=== PATIENT | male | born 1975 | race Caucasian/White ===

== ENCOUNTER 2016-12-02 00:07 | Inpatient (IN) | payer MEDICAID ==
[~2016-12-02] VITALS: Ht 172.7 cm; Wt 88.0 kg
[2016-12-02] VITALS (18 sets, daily range): BP systolic 111–193; BP diastolic 68–98; PULSE 55–102; RESP 17–23; Ht 172.7 cm; Wt 88.0 kg
--- NOTE | 2016-12-02 01:27 | ERA ---
ER Documentation Chief Complaint Date/Time DATE: 12/02/16 TIME: 01:27 Chief Complaint AP HPI The patient is a 41-year-old male, presenting with acute moderate epigastric abdominal pain that began about 10 PM, he had similar symptoms previously but not with this intensity. The pain is 10/10, no aggravating or relieving factor. He denies fever, chills, neck pain, chest pain, dyspnea, vomiting, dysuria, diarrhea. He smokes, denies drinking or using illicit drug Past medical/surgical history: None ROS All systems reviewed and are negative except as per history of present illness. Medications Home Meds No Active Prescriptions or Reported Meds Allergies Allergies: Coded Allergies: No Known Allergy (Unverified , 12/02/16) PMhx/Soc Medical and Surgical Hx: pt denies Medical Hx, pt denies Surgical Hx Hx Alcohol Use: No Hx Substance Use: No Hx Tobacco Use: Yes Smoking Status: Current some day smoker Physical Exam Vitals Vital Signs Date Time Temp Pulse Resp B/P Pulse Ox O2 Delivery O2 Flow Rate FiO2 12/02/16 03:55 61 16 139/93 97 Room Air 12/02/16 02:58 61 16 166/98 100 Room Air 12/02/16 00:29 97.3 55 20 167/93 100 Physical Exam Const: No acute distress. Head: Atraumatic. Eyes: Normal Conjunctiva. ENT: Normal External Ears, Nose and Mouth. Neck: Full range of motion. No meningismus. Resp: Clear to auscultation bilaterally. Cardio: Regular rate and rhythm. Abd: Soft, non distended, normal bowel sounds, Moderate epigastric and mild right upper quadrant tenderness. No rigidity, rebound, CVA tenderness Skin: No petechiae or rashes. Back: No midline or flank tenderness. Ext: No cyanosis, or edema. Neur: Awake and alert. No focal deficit Psych: Normal Mood and Affect. Result Diagram: 12/02/16 0140 12/02/16 0140 Results 24 hrs Laboratory Tests Test 12/02/16 01:40 12/02/16 01:50 White Blood Count 10.610^3/ul Red Blood Count 4.7010^6/ul Hemoglobin 14.6g/dl Hematocrit 41.4% Mean Corpuscular Volume 88.1fl Mean Corpuscular Hemoglobin 31.1pg Mean Corpuscular Hemoglobin Concent 35.3g/dl Red Cell Distribution Width 12.8% Platelet Count 03487^3/UL Mean Platelet Volume 11.8fl Neutrophils % 65.7% Lymphocytes % 22.7% Monocytes % 6.9% Eosinophils % 3.5% Basophils % 0.7% Nucleated Red Blood Cells % 0.0/100WBC Neutrophils # (Manual) 7.010^3/ul Lymphocytes # 2.410^3/ul Monocytes # 0.710^3/ul Eosinophils # 0.410^3/ul Basophils # 0.110^3/ul Nucleated Red Blood Cells # 0.010^3/ul Sodium Level 140mmol/L Potassium Level 3.7mmol/L Chloride Level 104mmol/L Carbon Dioxide Level 27mmol/L Anion Gap 13 Blood Urea Nitrogen 11mg/dl Creatinine 0.89mg/dl Glucose Level 176mg/dl Calcium Level 9.0mg/dl Total Bilirubin 0.5mg/dl Direct Bilirubin 0.00mg/dl Indirect Bilirubin 0.5mg/dl Aspartate Amino Transf (AST/SGOT) 28IU/L Alanine Aminotransferase (ALT/SGPT) 41IU/L Alkaline Phosphatase 125IU/L Total Protein 7.3g/dl Albumin 4.1g/dl Globulin 3.20g/dl Albumin/Globulin Ratio 1.28 Lipase 137U/L Bedside Urine pH (LAB) 6.0 Bedside Urine Protein (LAB) Negative Bedside Urine Glucose (UA) Negative Bedside Urine Ketones (LAB) Negative Bedside Urine Blood Negative Bedside Urine Nitrite (LAB) Negative Bedside Urine Leukocyte Esterase (L Negative Current Medications Medications (Trade) Dose Ordered Sig/Kinjal Route PRN Reason Start Time Stop Time Status Last Admin Dose Admin Morphine Sulfate (morphine) 4 mg ONCE STAT IV 12/02/16 02:05 12/02/16 02:08 DC 12/02/16 02:10 Ondansetron HCl (Zofran Inj) 4 mg ONCE STAT IV 12/02/16 02:05 12/02/16 02:08 DC 12/02/16 02:10 Hydromorphone HCl 1 mg 1 mg ONCE STAT IV 12/02/16 02:50 12/02/16 02:51 DC 12/02/16 02:56 Piperacillin Sod/ Tazobactam Sod 100 ml @ 200 mls/hr ONCE ONCE IVPB 12/02/16 03:30 12/02/16 03:59 DC 12/02/16 03:11 Sodium Chloride (NS) 1,000 ml @ 1,000 mls/hr Q1H ONCE IV 12/02/16 03:30 12/02/16 04:29 DC 12/02/16 03:11 Hydralazine HCl 10 mg 10 mg Q6H PRN IV ELEVATED BLOOD PRESSURE 12/02/16 03:30 Sodium Chloride (NS) 1,000 ml @ 75 mls/hr [id number] IV 12/02/16 03:21 12/02/16 03:34 IV Flush (NS 3 ml) 3 ml PER PROTOCOL IV 12/02/16 03:30 Ondansetron HCl (Zofran Inj) 4 mg Q6H PRN IV NAUSEA AND/OR VOMITING 12/02/16 03:30 Acetaminophen (Tylenol Tab) 650 mg Q6H PRN PO PAIN LEVEL 1-3 OR FEVER 12/02/16 03:30 Hydromorphone HCl (Dilaudid) 0.5 mg Q4H PRN IV SEVERE PAIN LEVEL 7-10 12/02/16 03:30 Docusate Sodium (Colace) 100 mg Q12H PRN PO CONSTIPATION 12/02/16 03:30 Bisacodyl (Dulcolax) 5 mg DAILY PRN PO CONSTIPATION 12/02/16 03:30 Famotidine 20 mg 20 mg Q12 IV 12/02/16 03:31 12/02/16 03:33 Piperacillin Sod/ Tazobactam Sod (Zosyn 3.375gm/ 100 ml (Pmx)) 100 ml @ 200 mls/hr Q6 IVPB 12/02/16 08:00 Procedures/[place] [address] Radiology Main Line: [phone] DIAGNOSTIC IMAGING REPORT Patient: CARLOS BOTELLO : 1975 Age: 41 Sex: M MR #: [id number] DOS: 12/02/16 0151 Ordering MD: PRUDENCIO DAY MD Location: E/R Room/Bed: PROCEDURE: Abdominal ultrasound, limited. CLINICAL INDICATION: Abdominal pain. TECHNIQUE: Multiple real-time images were acquired of the patient's right upper abdomen utilizing a high resolution transducer. COMPARISON: None FINDINGS: The liver demonstrates increased echogenicity and normal size measuring 16.7 cm. There is no focal mass or intrahepatic biliary ductal dilatation. The portal vein is patent. The gallbladder is not distended. There is an echogenic , nonmobile gallstone within the gallbladder neck. There is focal tenderness over the gallbladder. There is no pericholecystic fluid or gallbladder wall thickening. The common bile duct measures 4.3 mm in maximal dimension. The pancreas is obscured by overlying bowel gas. No free fluid is identified. The right kidney is normal size and echogenicity measuring 11.6 cm. There is no focal renal mass or echogenic calculus identified. There is no obstructive uropathy. IMPRESSION: Cholelithiasis with positive sonographic Molina's sign. There is no gallbladder wall thickening or pericholecystic fluid. Fatty infiltration of the liver. Pancreas obscured by overlying bowel gas. .Tien Valdez MD, MD Date Time Electronically viewed and signed by .Tien Valdez MD, MD on 12/02/2016 02:40 .T/ CC: PRUDENCIO DAY MD [place] [address] Radiology Main Line: [phone] DIAGNOSTIC IMAGING REPORT Patient: CARLOS BOTELLO : 1975 Age: 41 Sex: M [id number] DOS: 12/02/16 0151 Ordering MD: PRUDENCIO DAY MD Location: E/R Room/Bed: PROCEDURE: CT abdomen and pelvis without intravenous contrast. CLINICAL INDICATION: Pain. TECHNIQUE: CT of the abdomen/pelvis was performed utilizing axial images with reconstructions in sagittal and coronal planes. The administered radiation dose is CTDI 15.2 mGy, DLP 987 mGy-cm. One or more of the following dose reduction techniques were used: automated exposure control, adjustment of the mA and/or kV according to patient size and/or use of iterative reconstruction technique. COMPARISON: No pertinent prior examinations were submitted for comparison. FINDINGS: Visualized Chest: Some mild atelectasis is noted at the lung bases. Abdomen: The spleen, pancreas, and adrenal glands are unremarkable. The liver is diffusely decreased in attenuation, compatible with hepatic steatosis. The gallbladder is mildly distended. A large stone is noted in the region of the gallbladder neck. There is some mild pericholecystic inflammatory changes. The kidneys are without hydronephrosis. No definite urinary calculi are seen. There is no evidence of bowel obstruction. The appendix is normal. No intra- abdominal free air is seen. There is no evidence of intra-abdominal adenopathy or free fluid. Pelvis: There is no evidence of pelvic adenopathy or free fluid. The prostate and bladder are unremarkable. Osseous structures: Unremarkable. IMPRESSION: Cholelithiasis with some mild gallbladder distension and surrounding inflammatory changes suggestive of cholecystitis. Hepatic steatosis. RPTAT: HIKT .Juventino Oviedo MD, MD Date Time Electronically viewed and signed by .Juventino Oviedo MD, MD on 12/02/2016 02:51 .T/ CC: PRUDENCIO DAY MEDICAL MAKING DECISION: The patient is a 41-year-old male, presenting with symptomatic biliary colic. He was treated with morphine 4 mg IV and Dilaudid 1 mg IV for pain, Zofran 4 mg IV for nausea and 1 L normal saline for clinical dehydration, Zosyn IV for suspected acute cholecystitis with good response The differential diagnoses considered include but are not limited to cholelithiasis, cholecystitis, cystitis, pancreatitis, hepatitis, gastritis, peptic ulcer disease, gastric ulcer, appendicitis, diverticulitis, cholangitis, choledocholithiasis, partial small bowel obstruction. Consultation: I discussed the patient with the on-call general surgeon Dr. Marinelli at 3 AM, who was made aware of the lab, the treatment, the patient condition. He accepted the consult Departure Diagnosis: Primary Impression: Biliary colic Condition: Stable Comments I discussed the findings with the patient. I discussed the patient with on-call hospitalist Dr. Bull who was made aware of the lab, the treatment, the patient condition and my discussion with her general surgeon. The patient is [facility] to [facility] at 3:15 AM PRUDENCIO DAY MD Dec 02, 2016 01:27
[2016-12-02 01:43] LABS: URINE BLOOD (Dip) POC Negative (NEGATIVE)
[2016-12-02] MEDS ORDERED: ONDANSETRON 4 MG INJ ONE ×2 (01:50→14:55)
[2016-12-02] MEDS ORDERED: morphine 4 MG/ML VIAL ONE (01:50)
[2016-12-02] MEDS ORDERED: ONDANSETRON 4 MG INJ IV STA (02:05)
[2016-12-02] MEDS ORDERED: morphine 4 MG/ML VIAL IV STA (02:05)
[2016-12-02 02:11] LABS: BASOPHIL # 0.1 10^3/ul (0.0-0.1); BASOPHILS % 0.7 % (0.0-2.0); EOSINOPHILS # 0.4 10^3/ul (0.0-0.5); EOSINOPHILS % 3.5 % (0.0-7.0); HEMATOCRIT 41.4 % (42.0-52.0); HEMOGLOBIN 14.6 g/dl (14.0-18.0); LYMPHOCYTES # 2.4 10^3/ul (0.8-2.9); LYMPHOCYTES % 22.7 % (15.0-51.0); MEAN CORPUSCULAR HEMOGLOBIN 31.1 pg (29.0-33.0); MEAN CORPUSCULAR HGB CONC 35.3 g/dl (32.0-37.0); MEAN CORPUSCULAR VOLUME 88.1 fl (82.0-101.0); MEAN PLATELET VOLUME 11.8 fl (7.4-10.4); MONOCYTE # 0.7 10^3/ul (0.3-0.9); MONOCYTES % 6.9 % (0.0-11.0); NEUTROPHILS % 65.7 % (39.0-77.0); PLATELET COUNT 218 10^3/UL (140-415); RED CELL DISTRIBUTION WIDTH 12.8 % (11.5-14.5); WHITE BLOOD COUNT 10.6 10^3/ul (4.8-10.8)
[2016-12-02 02:32] LABS: ALBUMIN 4.1 g/dl (3.3-4.9); ALBUMIN/GLOBULIN RATIO 1.28; BILIRUBIN,INDIRECT 0.5 mg/dl (0-1.1); BILIRUBIN,TOTAL 0.5 mg/dl (0.2-1.3); CREATININE 0.89 mg/dl (0.61-1.24); POTASSIUM 3.7 mmol/L (3.5-5.1); TOTAL PROTEIN 7.3 g/dl (6.1-8.1)
--- NOTE | 2016-12-02 02:40 | RADRPT ---
PROCEDURE: Abdominal ultrasound, limited. CLINICAL INDICATION: Abdominal pain. TECHNIQUE: Multiple real-time images were acquired of the patient's right upper abdomen utilizing a high resolution transducer. COMPARISON: None FINDINGS: The liver demonstrates increased echogenicity and normal size measuring 16.7 cm. There is no focal mass or intrahepatic biliary ductal dilatation. The portal vein is patent. The gallbladder is not distended. There is an echogenic, nonmobile gallstone within the gallbladder neck. There is focal t enderness over the gallbladder. There is no pericholecystic fluid or gallbladder wall thickening. The common bile duct measures 4.3 mm in maximal dimension. The pancreas is obscured by overlying andrew wel gas. No free fluid is identified. The right kidney is normal size and echogenicity measuring 11.6 cm. There is no focal renal mass or echogenic calculus identified. There is no obstructive uropathy. IMPRESSION: Cholelithiasis with positive sonographic Molina's sign. There is no gallbladder wall thickening or p ericholecystic fluid. Fatty infiltration of the liver. Pancreas obscured by overlying bowel gas. .Tien Valdez MD, MD Date Time Electronically viewed and signed by .Tien Valdez MD, MD on 12/02/2016 02:40 .T/
[2016-12-02] MEDS ORDERED: HYDROmorphONE 1 MG/ML SYG IV STA (02:50)
--- NOTE | 2016-12-02 02:51 | RADRPT ---
PROCEDURE: CT abdomen and pelvis without intravenous contrast. CLINICAL INDICATION: Pain. TECHNIQUE: CT of the abdomen/pelvis was performed utilizing axial images with reconstructions in s agittal and coronal planes. The administered radiation dose is CTDI 15.2 mGy, DLP 987 mGy-cm. One or more of the following dose reduction techniques were used: automated exposure control, adjustment o f the mA and/or kV according to patient size and/or use of iterative reconstruction technique. COMPARISON: No pertinent prior examinations were submitted for comparison. FINDINGS: Visualized Chest: Some mild atelectasis is noted at the lung bases. Abdomen: The spleen, pancreas, and adrenal glands are unremarkable. The liver is diffusely decreased in at tenuation, compatible with hepatic steatosis. The gallbladder is mildly distended. A large stone is noted in the region of the gallbladder neck. There is some mild pericholecystic inflammatory changes . The kidneys are without hydronephrosis. No definite urinary calculi are seen. There is no evidence of bowel obstruction. The appendix is normal. No intra-abdominal free air is seen. There is no evidence of intra-abdominal adenopathy or free fluid. Pelvis: There is no evidence of pelvic adenopathy or free fluid. The prostate and bladder are unremarkable. Osseous structures: Unremarkable. IMPRESSION: Cholelithiasis with some mild gallbladder distension and surrounding inflammatory changes suggestive of cholecystitis. Hepatic steatosis. RPTAT: HIKT .Juventino Oviedo MD, MD Date Time Electronically viewed and signed by .Juventino Oviedo MD, on 12/02/2016 02:51 .T/
[2016-12-02] MEDS ORDERED: HYDROmorphONE 1 MG/ML SYG IV PRN (03:30)
[2016-12-02] MEDS ORDERED: DOCUSATE SODIUM 100 MG CAP PO PRN (03:30)
[2016-12-02] MEDS ORDERED: SOD CHLORIDE 0.9% 1,000 ML IV ONE (03:30)
[2016-12-02] MEDS ORDERED: ONDANSETRON 4 MG INJ IV PRN ×3 (03:30→16:00)
[2016-12-02] MEDS ORDERED: ACETAMINOPHEN 325 MG TAB PO PRN (03:30)
[2016-12-02] MEDS ORDERED: PIPER-TAZO 3.375 GM IV (PMX) 100 ML IVPB ONE (03:30)
[2016-12-02] MEDS ORDERED: BISACODYL (EC) 5 MG TAB PO PRN (03:30)
[2016-12-02] MEDS ORDERED: hydrALAzine 20 MG INJ IV PRN (03:30)
[2016-12-02] MEDS ORDERED: NACL 0.9% 3 ML SYG IV SCH (03:30)
[2016-12-02] MEDS: FAMOTIDINE 20 MG INJ IV SCH ×3 (03:33→21:31)
[2016-12-02] MEDS: SOD CHLORIDE 0.9% 1,000 ML IV SCH ×2 (03:34→18:07)
[2016-12-02 06:52] LABS: CHOL/HDL RATIO 4.7 RATIO
[2016-12-02 07:24] LABS: THYROID STIMULATING HORMONE 3.94 MIU/L (0.465-4.680)
--- NOTE | 2016-12-02 08:33 | HP ---
Date/Time of Note Date/Time of Note DATE: 12/02/16 TIME: 08:28 Assessment/Plan VTE Prophylaxis VTE Prophylaxis Intervention: SCD's Lines/Catheters IV [facility]ter [facility]from [facility]): Saline Lock Assessment/Plan Chief Complaint/Hosp Course This is a 41-year-old male being admitted to the [facility] floor for: #1 symptomatic biliary colic: Ultrasound shows signs of cholelithiasis but no signs of cholecystitis. However CT scan of the abdomen showed signs suggestive of possible acute cholecystitis. At the current time will keep patient n.p.o., IV fluid hydration. IV narcotic for pain control. IV Zosyn. General surgery consulted via the ED. #2 cholelithiasis: We will check lipid panel #3 DVT and GI prophylaxis: SCDs, acid isabella Further treatment strategy will be followed as per the clinical course Problems: HPI/ROS Admit Date/Time Admit Date/Time Dec 02, 2016 at 03:13 Hx of Present Illness Chief complaint: Epigastric pain The patient is a 41-year-old male, presenting with acute moderate epigastric abdominal pain that began about 10 PM, he had similar symptoms previously but not with this intensity. The pain is 10/10, no aggravating or relieving factor. He denies fever, chills, neck pain, chest pain, dyspnea, vomiting, dysuria, diarrhea. Allergies: NKDA Medications: None ROS Const: Negative for fever, chills, weight gain or weight loss, fatigue, or diaphoresis Eyes : No pain discharge or redness or change in visual acuity ENT: No pain, sore throat, congestion, congestion, dysphagia or discharge Respiratory: No shortness of breath, cough, sputum, wheezing, or pleuritic pain Cardiovascular: No chest pain, palpitation, PND, or edema GI : As per HPI Genitourinary: No dysuria, hematuria, flank pain , discharge or CVA tenderness Musculoskeletal: No joint pain, back pain, neck pain, restricted range of motion in neck or joints Skin: No rash, bruising or hives Neuro: No headache, dizziness, syncope, seizure, focal weakness Endocrine: No polyuria, polydipsia, temperature intolerance Psych: No hallucination, depression, anxiety or suicidal ideation PMH/Family/Social Past Medical History Medical History: no pertinent history Past Surgical History Past Surgical Hx: no surgical history Family History Significant Family History: no pertinent family hx Social History Alcohol Use: occasionally Smoking Status: Never smoker Drug Use: none Exam/Review of Systems Vital Signs Vitals Vital Signs Date Time Temp Pulse Resp B/P Pulse Ox O2 Delivery O2 Flow Rate FiO2 12/02/16 07:20 98.1 89 18 154/91 99 Room Air Exam Exam General: Patient is well-developed well-nourished The patient is alert oriented -3 lying comfortably in bed. HEENT: Atraumatic, normocephalic. The pupils are equal, round and reactive. Extraocular motor are intact Neck: Supple with full range of motion. No rigidity or meningismus Chest: Nontender Lungs: Clear to auscultation bilaterally no crackles rales or wheezing Heart: Normal S1-S2, Regular rhythm and rate. No murmur, S3, or S4 Abdomen: Soft, tenderness to palpation over the right upper quadrant and epigastric region, normal bowel sounds Extremities: Normal to inspection, no edema no cyanosis Neurologic: Normal mental status, speech normal, cranial nerves II through XII are intact, motor and sensory are intact, no focal weakness Additional Comments PROCEDURE: Abdominal ultrasound, limited. CLINICAL INDICATION: Abdominal pain. TECHNIQUE: Multiple real-time images were acquired of the patient's right upper abdomen utilizing a high resolution transducer. COMPARISON: None FINDINGS: The liver demonstrates increased echogenicity and normal size measuring 16.7 cm. There is no focal mass or intrahepatic biliary ductal dilatation. The portal vein is patent. The gallbladder is not distended. There is an echogenic , nonmobile gallstone within the gallbladder neck. There is focal tenderness over the gallbladder. There is no pericholecystic fluid or gallbladder wall thickening. The common bile duct measures 4.3 mm in maximal dimension. The pancreas is obscured by overlying bowel gas. No free fluid is identified. The right kidney is normal size and echogenicity measuring 11.6 cm. There is no focal renal mass or echogenic calculus identified. There is no obstructive uropathy. IMPRESSION: Cholelithiasis with positive sonographic Molina's sign. There is no gallbladder wall thickening or pericholecystic fluid. Fatty infiltration of the liver. Pancreas obscured by overlying bowel gas. .Tien Valdez MD, MD Date Time Electronically viewed and signed by .Tien Valdez MD, MD on 12/02/2016 02:40 .T/ CC: PRUDENCIO DAY MD PROCEDURE: CT abdomen and pelvis without intravenous contrast. CLINICAL INDICATION: Pain. TECHNIQUE: CT of the abdomen/pelvis was performed utilizing axial images with reconstructions in sagittal and coronal planes. The administered radiation dose is CTDI 15.2 mGy, DLP 987 mGy-cm. One or more of the following dose reduction techniques were used: automated exposure control, adjustment of the mA and/or kV according to patient size and/or use of iterative reconstruction technique. COMPARISON: No pertinent prior examinations were submitted for comparison. FINDINGS: Visualized Chest: Some mild atelectasis is noted at the lung bases. Abdomen: The spleen, pancreas, and adrenal glands are unremarkable. The liver is diffusely decreased in attenuation, compatible with hepatic steatosis. The gallbladder is mildly distended. A large stone is noted in the region of the gallbladder neck. There is some mild pericholecystic inflammatory changes. The kidneys are without hydronephrosis. No definite urinary calculi are seen. There is no evidence of bowel obstruction. The appendix is normal. No intra- abdominal free air is seen. There is no evidence of intra-abdominal adenopathy or free fluid. Pelvis: There is no evidence of pelvic adenopathy or free fluid. The prostate and bladder are unremarkable. Osseous structures: Unremarkable. IMPRESSION: Cholelithiasis with some mild gallbladder distension and surrounding inflammatory changes suggestive of cholecystitis. Hepatic steatosis. RPTAT: HIKT .Juventino Oviedo MD, Date Time Electronically viewed and signed by .Juventino Oviedo MD, on 12/02/2016 02:51 .T/ CC: PRUDENCIO DAY MD Labs Result Diagram: 12/02/16 0140 12/02/16 014 Medications Medications Current Medications Hydralazine HCl 10 mg 10 mg Q6H PRN IV ELEVATED BLOOD PRESSURE Last administered on 12/02/16 05:29; Admin Dose 10 MG; Start 12/02/16 at 03:30 Sodium Chloride (NS) 1,000 ml @ 75 mls/hr [id number] IV Last administered on 03:34; Admin Dose 75 MLS/HR; Start 12/02/16 at 03:21 Ondansetron HCl (Zofran Inj) 4 mg Q6H PRN IV NAUSEA AND/OR VOMITING; Start 12/02 at 03:30 Acetaminophen (Tylenol Tab) 650 mg Q6H PRN PO PAIN LEVEL 1-3 OR FEVER; Start at 03:30 Docusate Sodium (Colace) 100 mg Q12H PRN PO CONSTIPATION; Start 12/02/16 at 03: 30 Bisacodyl (Dulcolax) 5 mg DAILY PRN PO CONSTIPATION; Start 12/02/16 at 03:30 Famotidine 20 mg 20 mg Q12 IV Last administered on 12/02/16 03:33; Admin Dose 20 MG; Start 12/02/16 at 03:31 Piperacillin Sod/ Tazobactam Sod (Zosyn 3.375gm/ 100 ml (Pmx)) 100 ml @ 200 mls /hr Q6 IVPB ; Start 12/02/16 at 08:00 Hydromorphone HCl (Dilaudid) 1 mg Q4H PRN IV PAIN; Start 12/02/16 at 07:00 ADITYA HARMON Dec 02, 2016 08:33
[2016-12-02] MEDS: PIPER-TAZO 3.375 GM IV (PMX) 100 ML IVPB SCH ×2 (08:57→12:28)
[2016-12-02] MEDS ORDERED: FAMOTIDINE 20 MG INJ ONE (13:16)
[2016-12-02] MEDS: HYDROmorphONE 1 MG/ML SYG IV PRN (13:28)
[2016-12-02] MEDS ORDERED: BUPIVACAINE 0.5%/EPI (SDV) 10 ML INJ ONE (14:02)
[2016-12-02] MEDS ORDERED: ROCURONIUM 50 MG INJ ONE (14:25)
[2016-12-02] MEDS ORDERED: MIDAZOLAM 1 MG/ML 2 ML INJ ONE (14:25)
[2016-12-02] MEDS ORDERED: PROPOFOL 20 ML ONE (14:25)
[2016-12-02] MEDS ORDERED: SUCCINYLCHOLINE CHLORIDE 100 MG/5 ML SYG IV ONE (14:25)
[2016-12-02] MEDS ORDERED: FENTAnyl 50 MCG/ML VIAL ONE ×2 (14:25→15:07)
[2016-12-02] MEDS ORDERED: LIDOCAINE 2% (SDV) 5 ML INJ ONE (14:25)
[2016-12-02] MEDS ORDERED: HYDROmorphONE (0.2 MG/ML) 10ML SYG IV PRN ×2 (14:30)
[2016-12-02] MEDS ORDERED: FENTAnyl 50 MCG/ML VIAL IV PRN (14:30)
[2016-12-02] MEDS ORDERED: MEPERIDINE 25 MG INJ IV PRN (14:30)
[2016-12-02] MEDS ORDERED: DIPHENHYDRAMINE 50 MG INJ IV PRN (14:30)
[2016-12-02] MEDS ORDERED: PROCHLORPERAZINE 10 MG INJ IV PRN (14:30)
[2016-12-02] MEDS ORDERED: OXYCODONE/ACETAMINOPHEN (5/325) TAB PO PRN ×4 (14:30→20:00)
--- NOTE | 2016-12-02 14:36 | CONS ---
Date/Time of Note Date/Time of Note DATE: 12/02/16 TIME: 14:33 Assessment/Plan Assessment/Plan Additional Assessment/Plan Clinically this patient has acute cholecystitis and will benefit from laparoscopic cholecystectomy. I have discussed the procedure, outcomes, expectations, alternatives and risks in detail with the patient and family who have an excellent understanding of the nature of his situation and agreed to the proposed plan of therapy as outlined. Consultation Date/Type/Reason Admit Date/Time Dec 02, 2016 at 03:13 Date of Consultation: Dec 02, 2016 Reason for Consultation Cholecystitis Hx of Present Illness The patient is an otherwise very healthy 41-year-old male who presents with a 1 day history of midepigastric and right upper quadrant abdominal pain. The patient was admitted with a diagnosis of biliary colic versus acute cholecystitis and surgical consultation was requested in that regard. He has had no fevers, chills or jaundice. Constitutional: no complaints Eyes: no complaints ENT: no complaints Respiratory: no complaints Cardiovascular: no complaints Gastrointestinal: other (Gastric and right upper quadrant abdominal pain), pain Genitourinary: no complaints Musculoskeletal: no complaints Skin: no complaints Neurologic: no complaints Endocrine: no complaints Lymphatic: no complaints Psychological: no complaints Immunologic: no complaints Past Medical History Medical History: no pertinent history Past Surgical History Past Surgical Hx: no surgical history Family History Significant Family History: no pertinent family hx Social History Alcohol Use: occasionally Smoking Status: Current some day smoker Drug Use: none Exam/Review of Systems Vital Signs Vitals Vital Signs Date Time Temp Pulse Resp B/P Pulse Ox O2 Delivery O2 Flow Rate FiO2 12/02/16 07:20 98.1 89 18 154/91 99 Room Air Exam Constitutional: alert, oriented Psych: no complaints Head: normocephalic Eyes: nl conjunctiva ENMT: nl external ears & nose Neck: supple Respiratory: clear to auscultation Cardiovascular: regular rate and rhythm Gastrointestinal: other (Right upper quadrant), tender Musculoskeletal: nl extremities to inspection Extremities: normal pulses 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 Skin: nl turgor Lymph: nl lymph nodes Results Result Diagram: 12/02/16 0140 12/02/16 0140 Results 24 hrs Laboratory Tests Test 12/02/16 01:40 12/02/16 01:50 12/02/16 05:47 12/02/16 06:59 White Blood Count 10.6 Red Blood Count 4.70 Hemoglobin 14.6 Hematocrit 41.4 L Mean Corpuscular Volume 88.1 Mean Corpuscular Hemoglobin 31.1 Mean Corpuscular Hemoglobin Concent 35.3 Red Cell Distribution Width 12.8 Platelet Count 218 Mean Platelet Volume 11.8 H Neutrophils % 65.7 Lymphocytes % 22.7 Monocytes % 6.9 Eosinophils % 3.5 Basophils % 0.7 Nucleated Red Blood Cells % 0.0 Neutrophils # (Manual) 7.0 Lymphocytes # 2.4 Monocytes # 0.7 Eosinophils # 0.4 Basophils # 0.1 Nucleated Red Blood Cells # 0.0 Sodium Level 140 Potassium Level 3.7 Chloride Level 104 Carbon Dioxide Level 27 Anion Gap 13 Blood Urea Nitrogen 11 Creatinine 0.89 Glucose Level 176 Calcium Level 9.0 Total Bilirubin 0.5 Direct Bilirubin 0.00 Indirect Bilirubin 0.5 Aspartate Amino Transf (AST/SGOT) 28 Alanine Aminotransferase (ALT/SGPT) 41 Alkaline Phosphatase 125 H Total Protein 7.3 Albumin 4.1 Globulin 3.20 Albumin/Globulin Ratio 1.28 Lipase 137 Bedside Urine pH (LAB) 6.0 Bedside Urine Protein (LAB) Negative Bedside Urine Glucose (UA) Negative Bedside Urine Ketones (LAB) Negative Bedside Urine Blood Negative Bedside Urine Nitrite (LAB) Negative Bedside Urine Leukocyte Esterase (L Negative Triglycerides Level 77 Cholesterol Level 143 LDL Cholesterol, Calculated 98 HDL Cholesterol 30 Cholesterol/HDL Ratio 4.7 Thyroid Stimulating Hormone (TSH) 3.940 Hemoglobin A1c 5.4 Medications Medications Current Medications Hydralazine HCl 10 mg 10 mg Q6H PRN IV ELEVATED BLOOD PRESSURE Last administered on 12/02/16 05:29; Admin Dose 10 MG; Start 12/02/16 at 03:30 Sodium Chloride (NS) 1,000 ml @ 75 mls/hr [id number] IV Last administered on 03:34; Admin Dose 75 MLS/HR; Start 12/02/16 at 03:21 Ondansetron HCl (Zofran Inj) 4 mg Q6H PRN IV NAUSEA AND/OR VOMITING; Start 12/02 at 03:30 Acetaminophen (Tylenol Tab) 650 mg Q6H PRN PO PAIN LEVEL 1-3 OR FEVER; Start at 03:30 Docusate Sodium (Colace) 100 mg Q12H PRN PO CONSTIPATION; Start 12/02/16 at 03: 30 Bisacodyl (Dulcolax) 5 mg DAILY PRN PO CONSTIPATION; Start 12/02/16 at 03:30 Famotidine 20 mg 20 mg Q12 IV Last administered on 12/02/16 13:27; Admin Dose 20 MG; Start 12/02/16 at 03:31 Piperacillin Sod/ Tazobactam Sod (Zosyn 3.375gm/ 100 ml (Pmx)) 100 ml @ 200 mls /hr Q6 IVPB Last administered on 12/02/16 12:28; Admin Dose 200 MLS/HR; Start 12/02/16 at 08:00 Hydromorphone HCl (Dilaudid) 1 mg Q4H PRN IV PAIN Last administered on 13:28; Admin Dose 1 MG; Start 12/02/16 at 07:00 GLENDY FOWLER MD Dec 02, 2016 14:36
[2016-12-02] MEDS ORDERED: METOCLOPRAMIDE 10 MG INJ ONE (14:55)
[2016-12-02] MEDS ORDERED: DEXAMETHASONE 4 MG/ML 1 ML INJ ONE (14:55)
[2016-12-02] MEDS ORDERED: KETOROLAC 30 MG INJ ONE (15:07)
[2016-12-02] MEDS ORDERED: GLYCOPYRROLATE 0.4 MG INJ ONE (15:07)
[2016-12-02] MEDS ORDERED: NEOSTIGMINE 3 MG/3 ML SYRINGE ONE (15:07)
--- NOTE | 2016-12-02 15:53 | OPR ---
Date/Time of Note Date/Time of Note DATE: 12/02/16 TIME: 15:47 Operative Report Procedure Date: Dec 02, 2016 Preoperative Diagnosis Acute cholecystitis Postoperative Diagnosis Acute cholecystitis Operation Performed 1. Laparoscopic cholecystectomy 2. Placement of drain Surgeon: GLENDY FOWLER MD Anesthesia Type: general Anesthesiologist: TONY DURAN MD Estimated Blood Loss: 10 - 50 ml's Transfusion Required: no Specimens Gallbladder Grafts/Implants: none Tubes/Drains #19 Round [place] Complications: no Pt Condition Post Procedure: stable Disposition: PACU Indications Acute cholecystitis Operative\Procedure Findings Acutely inflamed edematous gallbladder Procedure Description Satisfactory general endotracheal anesthesia was achieved, the abdomen was prepped and draped in the usual fashion. The abdomen was insufflated with carbon dioxide through an umbilical Veress needle to 15 mmHg pressure. Veress needle was removed and the umbilical incision extended to 5 mm through which a 5 mm trocar was placed. 5 mm 0 lens was placed. Laparoscopy showed an acutely inflamed edematous gallbladder. Under direct visualization an 11 mm epigastric trocar was placed, as well as 2 5 mm right lateral abdominal trochars. Dome of the gallbladder was grasped and retracted superiorly. Alvares's pouch was grasped and retracted infero-laterally. The hepatoduodenal ligament was carefully dissected. The cystic duct was dissected between the gallbladder and the well-visualized sonia hepatis. The cystic duct was then triply hemoclipped and divided high at the junction of the gallbladder and cystic duct. The cystic artery was identified immediately posteriorly, this was triply hemoclipped and divided. The gallbladder was then dissected from below using electrocautery dissection and placed fully intact into an Endo Catch removed by the epigastric route. Because of the moderate inflammation and infection, it was elected to place a drain. A #19 round [place] drain was placed draining the right subhepatic space and gallbladder fossa, exiting through the lateralmost puncture site where it was secured to the skin with 3-0 nylon. The abdomen was then irrigated and irrigant returned clear. Abdomen was then desufflated and the trochars were removed. The fascia of the epigastrium was closed with a single suture of 0 Vicryl. The skin punctures were infiltrated with 30 cc of 0.25% Marcaine with epinephrine and closed with jose r. Sponge and needle counts were reported as correct 2. GLENDY FOWLER MD Dec 02, 2016 15:53
[2016-12-02] MEDS: CEFAZOLIN 1 GM/50 ML (PMX) 50 ML IVPB SCH (21:31)
[2016-12-03] MEDS: HYDROmorphONE 1 MG/ML SYG IV PRN (01:24)
[2016-12-03 01:54] VITALS: BP 106/64; RESP 18
[2016-12-03] MEDS: CEFAZOLIN 1 GM/50 ML (PMX) 50 ML IVPB SCH (05:16)
[2016-12-03] MEDS: SOD CHLORIDE 0.9% 1,000 ML IV SCH (05:53)
[2016-12-03 06:25] LABS: BASOPHILS % 0.2 % (0.0-2.0); HEMATOCRIT 36.4 % (42.0-52.0); HEMOGLOBIN 12.4 g/dl (14.0-18.0); LYMPHOCYTES # 1.2 10^3/ul (0.8-2.9); LYMPHOCYTES % 9.5 % (15.0-51.0); MEAN CORPUSCULAR HEMOGLOBIN 30.2 pg (29.0-33.0); MEAN CORPUSCULAR HGB CONC 34.1 g/dl (32.0-37.0); MEAN CORPUSCULAR VOLUME 88.8 fl (82.0-101.0); MEAN PLATELET VOLUME 11.2 fl (7.4-10.4); MONOCYTE # 0.8 10^3/ul (0.3-0.9); MONOCYTES % 6.3 % (0.0-11.0); NEUTROPHILS % 83.6 % (39.0-77.0); PLATELET COUNT 201 10^3/UL (140-415); RED CELL DISTRIBUTION WIDTH 13.2 % (11.5-14.5); WHITE BLOOD COUNT 12.5 10^3/ul (4.8-10.8)
[2016-12-03 06:41] LABS: ALBUMIN 3.4 g/dl (3.3-4.9); ALBUMIN/GLOBULIN RATIO 1.13; BILIRUBIN,INDIRECT 0.8 mg/dl (0-1.1); BILIRUBIN,TOTAL 0.8 mg/dl (0.2-1.3); CREATININE 0.79 mg/dl (0.61-1.24); POTASSIUM 3.9 mmol/L (3.5-5.1); TOTAL PROTEIN 6.4 g/dl (6.1-8.1)
[2016-12-03 08:06] VITALS: BP 111/66; RESP 18
--- NOTE | 2016-12-03 08:51 | PN ---
Date/Time of Note Date/Time of Note DATE: 12/03/16 TIME: 08:49 Assessment/Plan Lines/Catheters IV [facility] (from [facility]): Peripheral IV Assessment/Plan Chief Complaint/Hosp Course The patient is an otherwise very healthy 41-year-old male who presents with a 1 day history of midepigastric and right upper quadrant abdominal pain. The patient was admitted with a diagnosis of biliary colic versus acute cholecystitis and surgical consultation was requested in that regard. He has had no fevers, chills or jaundice. Problems: Assessment/Plan Abdominal examination is benign Plan: MING drain removed Can be discharged home today with pain medications and p.o. antibiotics Subjective 24 Hr Interval Summary Postoperative day #1 Patient markedly symptomatically improved Exam/Review of Systems Vital Signs Vitals Vital Signs Date Time Temp Pulse Resp B/P Pulse Ox O2 Delivery O2 Flow Rate FiO2 12/03/16 08:06 97.6 81 18 111/66 91 12/02/16 16:48 Room Air 12/02/16 15:57 8.0 Intake and Output 12/02/16 12/02/16 12/03/16 15:00 23:00 07:00 Intake Total 0 ml 480 ml 1090 ml Output Total 85 ml 220 ml Balance 0 ml 395 ml 870 ml Results Result Diagram: 12/03/16 0554 12/03/16 0554 GLENDY FOWLER MD Dec 03, 2016 08:51
--- NOTE | 2016-12-03 08:51 | PDOCDIS ---
Discharge Instructions CONDITION Patient Condition: Stable HOME CARE INSTRUCTIONS: Special Diet: REGULAR FOLLOW UP/APPOINTMENTS Follow-up Plan 1.Follow up with primary care physician in 1 week If you don't have one please let someone know, we can give you resources that may help you pick one. You may also call your insurance company to assign one to you. Review your medication list with your nurse before leaving and if you need new prescriptions please let your nurse know. I may have made changes to your home medications or given you new prescriptions, please let your primary doctor know as well. Stay compliant with your medications and report any side effects to your PCP or pharmacist. Return to the ER if you have any concerns and cannot reach your doctors or call your insurance company, they usually have a nurse that can help you. 2. Call 911 or go to the nearest emergency room if experiencing loss of consciousness, dizziness, chest pain, shortness of breath, vomiting/abdominal pain, speech difficulties, motor weakness or any unusual symptoms. REFERRALS Other Referrals Follow-up with in 1 week [address] [facility] [address] [place] [id number] Office OTHER ORDERS: Other Orders: Post operative Instructions *Do not lift anything more than 25 pounds for 6 to 8 weeks *Do not swim or take hot tub bath for 2weeks *Remove dressing and May shower-Use mild soap around site and pat dry *If you notice any oozing, bleeding or other drainage or having fever or chills from site please contact Surgeon's office-If unable to get office, you may go to nearest emergency room HARSHA ALEXANDER NP Dec 03, 2016 08:51
[2016-12-03] MEDS: FAMOTIDINE 20 MG INJ IV SCH (08:52)
[2016-12-03] MEDS ORDERED: HYDR-906 PO (08:53)
[2016-12-03] MEDS ORDERED: CEPH-443 PO (08:53)
[2016-12-03] MEDS: morphine 2 MG INJ IV PRN ×2 (08:53→08:56)
[2016-12-03 14:21] VITALS: BP 128/82; RESP 18
--- NOTE | 2016-12-05 06:51 | DS ---
DATE OF ADMISSION: 12/02/2016 DATE OF DISCHARGE: 12/03/2016 CONSULTATIONS: Randell Marinelli MD from General Surgery. DISCHARGE DIAGNOSIS: Acute cholecystitis, status post laparoscopic cholecystectomy on 12/02/2016. HOSPITAL COURSE: This is a 41-year-old male with no significant past medical history, who was admitted with a 1 day duration of epigastric and right upper quadrant abdominal pain. The patient did not have any nausea or vomiting. Initial workup was positive for acute cholecystitis and patient was admitted. On 12/02/2016, patient had undergone laparoscopic cholecystectomy with our surgery team at [facility]. The patient tolerated procedure well. Postoperatively, he was continued on antibiotics. There was no fevers. The patient also had a drain placed with procedure. The patient was started on a diet and was able to tolerate it. Pain was minimal. The patient had postoperative evaluation by surgery team and cleared for discharge with outpatient follow up. Drain also removed on 12/03/2016. There was also concern for homelessness and therefore social work evaluated the patient. However, patient's parents decided to take him home from the hospital. Patient and family were provided with resources. DISPOSITION: Patient will be discharged home with a 7 day duration of antibiotics along with pain medications. He was instructed to follow up with surgery in 1 week. The patient was also instructed not to lift anything more than 25 pounds for 6-8 weeks. He was also instructed not to swim or take hot tub baths for 2 weeks. Patient was instructed to remove dressing and may shower and use mild soap around the site and pat dry. The patient was also instructed to call surgeon's office if he noticed any oozing, bleeding or other drainage or having fever or chills. He was also instructed to go to nearest emergency room if he is unable to get hold of his surgeon. The patient verbalized discharge instructions. DISCHARGE MEDICATIONS: 1. Keflex 500 mg q.i.d., number 28. 2. [place] 07/26/2024 1 tab q.6h p.r.n. for pain, number 30. PERTINENT LABS, DIAGNOSTIC DATA AND VITAL SIGNS: Temperature 97.6, pulse rate 81, respiratory rate 18, blood pressure 111/66, oxygen saturation 95 percent on room air. On 12/03/2016, WBC 12,500, hemoglobin 12.4, hematocrit 36.4, platelet 201. On 12/03/2016, BMP, sodium 139, potassium 3.9, BUN 9, creatinine 0.7, glucose 117. On 12/02/2016, operation performed: Laparoscopic cholecystectomy with a drain placed. On 12/03/2016, successful removal of drain. At this time, I would like to thank Dr. Marinelli for seeing the patient, providing medical recommendation and performing appropriate procedures on this patient. Approximately 60 minute was spent in coordinating the discharge on this patient. Patient was seen in collaboration with Dr. Qiu. Dictated By: Orly Colón NP /lupe/rita /Document#: [id number] DARIELA
== END 2016-12-03 15:55 | disposition home or self-care (01) | DRG 413 ==
LOC: E/R 00:07 → MS3 03:13 → MS2 06:33
PROVIDERS: ADMIT Family Medicine; ATTEND Family Medicine
PROC: 0F9940Z Drainage of Common Bile Duct with Drainage Device, Percutaneous Endoscopic Approach (ICD-10-PCS; 2016-12-02)
PROC: 0FT44ZZ Resection of Gallbladder, Percutaneous Endoscopic Approach (ICD-10-PCS; principal; 2016-12-02 14:30)
DX: K80.42 Calculus of bile duct with acute cholecystitis without obstruction (principal)
CPT/HCPCS: 36415; 74176; 76705; 80053; 80061; 81003; 83036; 83690; 84100; 84443; 85025; 88304; 96374; 96375; J0360; J0690; J1100; J1170; J1885; J2175; J2250; J2270; J2405; J2543; J2710; J2765; J3010; J7030; J7999